=== PATIENT | male | born 1945 | race Caucasian/White ===

== ENCOUNTER 2017-07-06 08:54 | Day surgery (SDC) | payer OTHER ==
[2017-07-04 15:49] LABS: Basophils # (auto) 0 uL; Basophils % (auto) 0.5 % (0.0-2.0); Eosinophils # (auto) 0 uL; Eosinophils % (auto) 0.6 % (0.0-7.0); Hematocrit 36.3 % (41.0-53.0); Hemoglobin 11.8 g/dL (13.5-17.5); Lymphocytes # (auto) 0.7 uL; Lymphocytes % (auto) 11.8 % (10.0-50.0); Mean Corpuscular Hemoglobin 32.8 pg (28.0-32.0); Mean Corpuscular Hgb Conc. 32.6 g/dL (32.0-36.0); Mean Corpuscular Volume 100.4 fL (80.0-100.0); Monocytes % (auto) 16.6 % (0.0-12.0); Neutrophils # (auto) 4.1 uL; Neutrophils % (auto) 70.5 % (37.0-80.0); Nucleated Red Blood Cells % 0.1 %; Platelet Count (auto) 205 10^3/uL (140-450); Red Blood Cells 3.61 10^6/uL (4.5-5.90); Red Cell Distribution Width 13.9 % (11.8-14.3); White Blood Cell 5.8 10^3/uL (4.4-10.8)
[2017-07-04 16:07] LABS: INR 1.41 (0.9-1.15); Partial Thromboplastin Time 31.5 sec (22.64-33.71); Prothrombin Time 15.4 sec (9.37-12.3)
[2017-07-04 16:09] LABS: Calcium 7.9 mg/dL (8.5-10.1)
[~2017-07-06] VITALS: Ht 175.3 cm; Wt 68.0 kg
[~2017-07-06 08:54] MED LIST: ADAL40KI SC; CALC950T3 PO; CHOL500014 PO; CYAN1KIT IJ; OMEP20TA PO; PREN-96 PO; TAMS0.4C36 PO
[2017-07-06] MEDS ORDERED: ceFAZolin 1GM/100ML 50 ML IV ONE (09:32)
[2017-07-06] MEDS ORDERED: MIDAZOLAM HCL 1MG/1ML-2 ML VIAL ONE (11:43)
[2017-07-06] MEDS ORDERED: ETOMIDATE (2MG/ML) 20ML VIAL IV ONE (11:44)
[2017-07-06] MEDS ORDERED: LIDOCAINE HCL 2 %PF INJ 10ML AMP IJ ONE (11:44)
[2017-07-06] MEDS ORDERED: GLYCOPYRROLATE 0.2 MG/ML 1ML VIAL ONE ×2 (11:56→15:47)
[2017-07-06] MEDS ORDERED: NEOSTIGMINE 1 MG/ML INJ (10mg/10ML VIAL) ONE ×2 (11:56→15:47)
[2017-07-06] MEDS ORDERED: ROCURONIUM 10MG/ML 10ML VIAL IV ONE (12:03)
[2017-07-06] MEDS ORDERED: LIDOCAINE 1% (LOCAL ANESTH.) PF 5ml SDV ONE (13:09)
[2017-07-06] MEDS ORDERED: NALOXONE HCL 0.4 MG/ML VIAL IV PRN (13:15)
[2017-07-06] MEDS ORDERED: MORPHINE SULFATE 8mg/ml INJ SDV IV PRN (13:15)
[2017-07-06] MEDS ORDERED: hydrALAZINE HCL 20 MG/ML VL IV PRN (13:15)
[2017-07-06] MEDS ORDERED: ONDANSETRON HCL 4 MG/2 ML VIAL IV ONE (13:15)
[2017-07-06] MEDS ORDERED: fentaNYL CITRATE 100 MCG/2 ML VL ONE (14:33)
[2017-07-06] MEDS ORDERED: ePHEDrine SULFATE 50 MG/ML AMP ONE (14:54)
[2017-07-06 17:35] VITALS: BP 119/58
== END 2017-07-06 17:43 | disposition home or self-care (01) ==
LOC: SUR 08:54
PROVIDERS: ATTEND Urology
DX: C61 Malignant neoplasm of prostate (principal); K50.90 Crohn's disease, unspecified, without complications; M19.90 Unspecified osteoarthritis, unspecified site; D64.9 Anemia, unspecified; N18.9 Chronic kidney disease, unspecified; K21.9 Gastro-esophageal reflux disease without esophagitis; R97.20 Elevated prostate specific antigen [PSA]; Z90.49 Acquired absence of other specified parts of digestive tract; Z87.891 Personal history of nicotine dependence
CPT/HCPCS: 36415; 55873; 80048; 85025; 85610; 85730; C2618; J0690; J2250; J3010

== ENCOUNTER 2021-12-04 13:59 | Inpatient (IN) | payer MEDICARE, OTHER ==
[~2021-12-04] VITALS: Ht 177.8 cm; Wt 69.5 kg
[2021-12-04] MEDS ORDERED: SODIUM CHLORIDE 0.9% 1,000 ML IV ONE (16:00)
[2021-12-04] MEDS ORDERED: cefTRIAXone 1GM/50ML D5W 50 ML IV ONE (18:15)
[2021-12-04] MEDS ORDERED: AZITHROMYCIN 500MG/ 250ML 250 ML IV ONE (18:15)
[2021-12-04 18:53] LABS: Basophils # (auto) 0 10 ^3/uL (0-0.2); Basophils % (auto) 0.5 % (0.0-2.0); Eosinophils # (auto) 0 10 ^3/uL (0-0.8); Eosinophils % (auto) 0.3 % (0.0-7.0); Hematocrit 36.4 % (41.0-53.0); Hemoglobin 11.8 g/dL (13.5-17.5); Lymphocytes # (auto) 0.2 10 ^3/uL (0.4-5.4); Lymphocytes % (auto) 6.9 % (10.0-50.0); Mean Corpuscular Hemoglobin 29.1 pg (28.0-32.0); Mean Corpuscular Hgb Conc. 32.5 g/dL (32.0-36.0); Mean Corpuscular Volume 89.6 fL (80.0-100.0); Monocytes # (auto) 0.4 10 ^3/uL (0-1.3); Monocytes % (auto) 12.2 % (0.0-12.0); Neutrophils # (auto) 2.6 10 ^3/uL (1.6-8.6); Neutrophils % (auto) 80.1 % (37.0-80.0); Red Blood Cells 4.06 10^6/uL (4.5-5.90); Red Cell Distribution Width 14.5 % (11.8-14.3); White Blood Cell 3.3 10^3/uL (4.4-10.8)
[2021-12-04 19:15] LABS: Albumin 1.7 g/dL (3.4-5.0); Calcium 7.6 mg/dL (8.5-10.1); Magnesium 2.3 mg/dL (1.6-2.6); Potassium 4.5 mmol/L (3.5-5.1)
[2021-12-04 19:17] LABS: BUN/Creatinine Ratio 15.6; Bilirubin, Total 0.4 mg/dL (0.2-1.0)
[2021-12-04] MEDS ORDERED: SODIUM CHLORIDE 0.9% 1,000 ML IV SCH (19:30)
[2021-12-04] MEDS ORDERED: MORPHINE SULFATE INJ 2 MG/ml SYRG IV PRN (19:30)
[2021-12-04 20:48] VITALS: BP 106/62
[2021-12-04] MEDS: DexAMETHasone SOD PHOS 10MG/1ML VIAL INJ IV SCH (21:39)
[2021-12-04] MEDS: BUDESONIDE (INHALATION) 180 MCG IH IN SCH (21:46)
[2021-12-05 06:07] LABS: Basophils # (auto) 0 10 ^3/uL (0-0.2); Basophils % (auto) 0.3 % (0.0-2.0); Eosinophils # (auto) 0 10 ^3/uL (0-0.8); Eosinophils % (auto) 0.1 % (0.0-7.0); Hematocrit 34.2 % (41.0-53.0); Hemoglobin 11.4 g/dL (13.5-17.5); Lymphocytes # (auto) 0.3 10 ^3/uL (0.4-5.4); Lymphocytes % (auto) 8.4 % (10.0-50.0); Mean Corpuscular Hemoglobin 29.8 pg (28.0-32.0); Mean Corpuscular Hgb Conc. 33.5 g/dL (32.0-36.0); Mean Corpuscular Volume 89.2 fL (80.0-100.0); Monocytes # (auto) 0.2 10 ^3/uL (0-1.3); Monocytes % (auto) 5.5 % (0.0-12.0); Neutrophils # (auto) 2.9 10 ^3/uL (1.6-8.6); Neutrophils % (auto) 85.7 % (37.0-80.0); Nucleated Red Blood Cells % 0.2 %; Potassium 5.1 mmol/L (3.5-5.1); Red Blood Cells 3.83 10^6/uL (4.5-5.90); Red Cell Distribution Width 14.8 % (11.8-14.3); White Blood Cell 3.3 10^3/uL (4.4-10.8)
[2021-12-05 06:16] LABS: Albumin 1.4 g/dL (3.4-5.0); BUN/Creatinine Ratio 17.8; Bilirubin, Total 0.4 mg/dL (0.2-1.0); Calcium 6.9 mg/dL (8.5-10.1); Total Protein 5.4 g/dL (6.4-8.2)
[2021-12-05] MEDS: BUDESONIDE (INHALATION) 180 MCG IH IN SCH ×2 (09:13→18:51)
[2021-12-05] MEDS ORDERED: ZINC SULFATE 220mg CAP or TAB PO SCH (10:00)
[2021-12-05] MEDS: ZINC SULFATE 220mg CAP or TAB PO SCH (10:00)
[2021-12-05] MEDS: ENOXAPARIN SOD 40 MG/0.4 ML SYRINGE SC SCH (10:00)
[2021-12-05] MEDS: CHOLECALCIFEROL (VITD3) 2,000 UNIT CAP/TAB PO SCH (10:00)
[2021-12-05] MEDS: ASCORBIC ACID 1,000 MG TAB PO SCH (10:00)
[2021-12-05 10:01] VITALS: BP 95/52
[2021-12-05] MEDS: SODIUM CHLORIDE 0.9% 1,000 ML IV SCH ×2 (11:00→20:15)
[2021-12-05 11:09] VITALS: BP_SYST 142; BP_DIAS 80; BP_DIAS 86
[2021-12-05] MEDS: cefTRIAXone 1GM/50ML D5W 50 ML IV SCH (15:00)
[2021-12-05] MEDS: AZITHROMYCIN 500MG/ 250ML 250 ML IV SCH (15:08)
[2021-12-05 16:54] VITALS: BP 94/58
[2021-12-05 22:00] VITALS: BP 90/55
[2021-12-05] MEDS: DexAMETHasone SOD PHOS 10MG/1ML VIAL INJ IV SCH (22:44)
[2021-12-06] MEDS: SODIUM CHLORIDE 0.9% 1,000 ML IV SCH ×4 (04:56→20:20)
[2021-12-06 05:00] VITALS: BP 108/65
[2021-12-06 09:00] VITALS: BP 99/62
[2021-12-06] MEDS: BUDESONIDE (INHALATION) 180 MCG IH IN SCH ×2 (10:00→22:27)
[2021-12-06] MEDS: cefTRIAXone 1GM/50ML D5W 50 ML IV SCH (10:45)
[2021-12-06] MEDS: ZINC SULFATE 220mg CAP or TAB PO SCH (10:45)
[2021-12-06] MEDS: ENOXAPARIN SOD 40 MG/0.4 ML SYRINGE SC SCH (10:46)
[2021-12-06] MEDS: CHOLECALCIFEROL (VITD3) 2,000 UNIT CAP/TAB PO SCH (10:46)
[2021-12-06] MEDS: ASCORBIC ACID 1,000 MG TAB PO SCH (10:46)
[2021-12-06] MEDS: AZITHROMYCIN 500MG/ 250ML 250 ML IV SCH (10:47)
[2021-12-06] MEDS ORDERED: TPN PER PHARMACY 0 ML IV SCH (12:15)
[2021-12-06 13:00] VITALS: BP 115/61
[2021-12-06 14:30] LABS: Albumin 1.5 g/dL (3.4-5.0); Calcium 6.9 mg/dL (8.5-10.1); Potassium 4.3 mmol/L (3.5-5.1)
[2021-12-06 14:35] LABS: Bilirubin, Total 0.2 mg/dL (0.2-1.0); Phosphorus 2.2 mg/dL (2.5-4.90); Total Protein 4.7 g/dL (6.4-8.2)
[2021-12-06] MEDS ORDERED: DEXTROSE (50%) 50ML SYRG IV SCH (16:00)
[2021-12-06] MEDS: ACCU-CHEK COMFORT CURVE STRIP VI SCH (16:39)
[2021-12-06 16:50] VITALS: BP 106/56
[2021-12-06] MEDS: InsuLIN REG 1unit/0.01ml Soln (100units/ml) SC SCH (17:11)
[2021-12-06] MEDS: CLINIMIX PER PHARMACY IV NR (20:26)
[2021-12-06] MEDS: DexAMETHasone SOD PHOS 10MG/1ML VIAL INJ IV SCH (21:20)
[2021-12-06 22:00] VITALS: BP 126/57
[2021-12-07] MEDS: ACCU-CHEK COMFORT CURVE STRIP VI SCH ×5 (01:52→23:01)
[2021-12-07] MEDS: SODIUM CHLORIDE 0.9% 1,000 ML IV SCH ×5 (03:00→23:01)
[2021-12-07 05:00] VITALS: BP 135/76
[2021-12-07] MEDS: InsuLIN REG 1unit/0.01ml Soln (100units/ml) SC SCH ×5 (05:52→23:03)
[2021-12-07] MEDS: BUDESONIDE (INHALATION) 180 MCG IH IN SCH ×2 (08:42→19:53)
[2021-12-07 09:00] VITALS: BP 124/65
[2021-12-07] MEDS: ZINC SULFATE 220mg CAP or TAB PO SCH (09:48)
[2021-12-07] MEDS: cefTRIAXone 1GM/50ML D5W 50 ML IV SCH (09:48)
[2021-12-07] MEDS: CHOLECALCIFEROL (VITD3) 2,000 UNIT CAP/TAB PO SCH (09:48)
[2021-12-07] MEDS: ASCORBIC ACID 1,000 MG TAB PO SCH (09:48)
[2021-12-07] MEDS: ENOXAPARIN SOD 40 MG/0.4 ML SYRINGE SC SCH ×2 (09:49→10:00)
[2021-12-07 13:00] VITALS: BP 119/68
[2021-12-07] MEDS: AZITHROMYCIN 500MG/ 250ML 250 ML IV SCH (14:42)
[2021-12-07 17:00] VITALS: BP 123/61
[2021-12-07] MEDS: CLINIMIX PER PHARMACY IV NR (19:49)
[2021-12-07] MEDS: CLINIMIX PER PHARMACY IV SCH ×2 (20:00→23:03)
[2021-12-07 22:00] VITALS: BP 109/74
[2021-12-07] MEDS: DexAMETHasone SOD PHOS 10MG/1ML VIAL INJ IV SCH (23:03)
[2021-12-08] VITALS (7 sets, daily range): BP systolic 109–122; BP diastolic 52–78
[2021-12-08] MEDS: SODIUM CHLORIDE 0.9% 1,000 ML IV SCH (05:40)
[2021-12-08] MEDS: ACCU-CHEK COMFORT CURVE STRIP VI SCH ×3 (06:00→18:32)
[2021-12-08] MEDS: InsuLIN REG 1unit/0.01ml Soln (100units/ml) SC SCH ×3 (06:00→18:00)
[2021-12-08] MEDS: BUDESONIDE (INHALATION) 180 MCG IH IN SCH ×2 (09:42→22:19)
[2021-12-08] MEDS: AZITHROMYCIN 500MG/ 250ML 250 ML IV SCH (10:00)
[2021-12-08] MEDS: ENOXAPARIN SOD 40 MG/0.4 ML SYRINGE SC SCH (10:00)
[2021-12-08] MEDS: cefTRIAXone 1GM/50ML D5W 50 ML IV SCH (10:00)
[2021-12-08] MEDS: CHOLECALCIFEROL (VITD3) 2,000 UNIT CAP/TAB PO SCH (10:17)
[2021-12-08] MEDS: ASCORBIC ACID 1,000 MG TAB PO SCH (10:17)
[2021-12-08] MEDS: ZINC SULFATE 220mg CAP or TAB PO SCH (10:17)
[2021-12-08] MEDS: D5W/SOD CHLO 0.9% 1,000 ML IV SCH ×2 (12:45→19:25)
[2021-12-08] MEDS ORDERED: PANTOPRAZOLE 40 MG/10 ML VIAL INJ IV ONE (17:30)
[2021-12-08] MEDS: CLINIMIX PER PHARMACY IV SCH (19:49)
[2021-12-08] MEDS: DexAMETHasone SOD PHOS 10MG/1ML VIAL INJ IV SCH ×2 (21:48→22:00)
[2021-12-09] MEDS: ACCU-CHEK COMFORT CURVE STRIP VI SCH ×4 (00:29→18:38)
[2021-12-09] MEDS: D5W/SOD CHLO 0.9% 1,000 ML IV SCH ×4 (02:05→22:05)
[2021-12-09 05:00] VITALS: BP 116/53
[2021-12-09] MEDS: InsuLIN REG 1unit/0.01ml Soln (100units/ml) SC SCH ×4 (06:00→18:00)
[2021-12-09] MEDS: BUDESONIDE (INHALATION) 180 MCG IH IN SCH ×2 (07:23→19:42)
[2021-12-09 09:00] VITALS: BP 112/61
[2021-12-09] MEDS: cefTRIAXone 1GM/50ML D5W 50 ML IV SCH (10:00)
[2021-12-09] MEDS: AZITHROMYCIN 500MG/ 250ML 250 ML IV SCH (10:00)
[2021-12-09] MEDS: ENOXAPARIN SOD 40 MG/0.4 ML SYRINGE SC SCH (10:00)
[2021-12-09] MEDS ORDERED: PANTOPRAZOLE 40 MG TAB PO ONE (10:45)
[2021-12-09] MEDS ORDERED: HUMIRA SC SCH ×2 (10:45→11:30)
[2021-12-09] MEDS: CHOLECALCIFEROL (VITD3) 2,000 UNIT CAP/TAB PO SCH (11:42)
[2021-12-09] MEDS: ZINC SULFATE 220mg CAP or TAB PO SCH (11:43)
[2021-12-09] MEDS: ASCORBIC ACID 1,000 MG TAB PO SCH (11:43)
[2021-12-09 13:00] VITALS: BP 112/67
[2021-12-09 17:09] VITALS: BP 126/66
[2021-12-09] MEDS: CLINIMIX PER PHARMACY IV SCH (19:38)
[2021-12-09 22:00] VITALS: BP 138/67
[2021-12-09] MEDS: DexAMETHasone SOD PHOS 10MG/1ML VIAL INJ IV SCH (22:00)
[2021-12-10] MEDS: ACCU-CHEK COMFORT CURVE STRIP VI SCH ×3 (00:21→11:48)
[2021-12-10] MEDS: D5W/SOD CHLO 0.9% 1,000 ML IV SCH ×3 (04:45→18:05)
[2021-12-10 05:00] VITALS: BP 119/65
[2021-12-10] MEDS: InsuLIN REG 1unit/0.01ml Soln (100units/ml) SC SCH ×3 (05:48→11:48)
[2021-12-10] MEDS: BUDESONIDE (INHALATION) 180 MCG IH IN SCH ×2 (07:05→18:15)
[2021-12-10 08:34] VITALS: BP 123/65
[2021-12-10] MEDS: ASCORBIC ACID 1,000 MG TAB PO SCH (09:41)
[2021-12-10] MEDS: CHOLECALCIFEROL (VITD3) 2,000 UNIT CAP/TAB PO SCH (09:41)
[2021-12-10] MEDS: ZINC SULFATE 220mg CAP or TAB PO SCH (09:41)
[2021-12-10] MEDS: PANTOPRAZOLE 40 MG TAB PO SCH (09:42)
[2021-12-10] MEDS: ENOXAPARIN SOD 40 MG/0.4 ML SYRINGE SC SCH (09:46)
[2021-12-10 13:00] VITALS: BP 123/64
[2021-12-10] MEDS: AZITHROMYCIN 250 MG TAB PO SCH (13:04)
[2021-12-10 16:40] VITALS: BP 125/65
[2021-12-10 20:00] VITALS: BP 125/65
[2021-12-10] MEDS: DexAMETHasone SOD PHOS 10MG/1ML VIAL INJ IV SCH (22:00)
[2021-12-10] MEDS: ACETAMINOPHEN 325 MG TAB PO PRN (22:11)
[2021-12-10 23:23] VITALS: BP 151/75
[2021-12-11] MEDS: D5W/SOD CHLO 0.9% 1,000 ML IV SCH ×4 (00:44→20:11)
[2021-12-11 05:26] VITALS: BP 141/76
[2021-12-11 08:34] VITALS: BP 131/62
[2021-12-11] MEDS: BUDESONIDE (INHALATION) 180 MCG IH IN SCH ×2 (08:57→18:47)
[2021-12-11] MEDS: ENOXAPARIN SOD 40 MG/0.4 ML SYRINGE SC SCH (09:41)
[2021-12-11] MEDS: CHOLECALCIFEROL (VITD3) 2,000 UNIT CAP/TAB PO SCH (09:41)
[2021-12-11] MEDS: ASCORBIC ACID 1,000 MG TAB PO SCH (09:41)
[2021-12-11] MEDS: AZITHROMYCIN 250 MG TAB PO SCH (09:41)
[2021-12-11] MEDS: PANTOPRAZOLE 40 MG TAB PO SCH (09:41)
[2021-12-11] MEDS: ZINC SULFATE 220mg CAP or TAB PO SCH (09:41)
[2021-12-11 13:00] VITALS: BP 134/70
[2021-12-11 17:33] VITALS: BP 143/76
[2021-12-11 21:45] VITALS: BP 132/77
[2021-12-11] MEDS: DexAMETHasone SOD PHOS 10MG/1ML VIAL INJ IV SCH (21:45)
[2021-12-11] MEDS: HYDROcodone-ACET 5/325MG TAB PO PRN (23:00)
[2021-12-12] MEDS: D5W/SOD CHLO 0.9% 1,000 ML IV SCH ×3 (03:25→16:45)
[2021-12-12 05:11] VITALS: BP 140/77
[2021-12-12] MEDS: BUDESONIDE (INHALATION) 180 MCG IH IN SCH ×2 (06:53→21:53)
[2021-12-12 08:53] VITALS: BP 107/59
[2021-12-12] MEDS: ENOXAPARIN SOD 40 MG/0.4 ML SYRINGE SC SCH (10:00)
[2021-12-12] MEDS: ASCORBIC ACID 1,000 MG TAB PO SCH (10:00)
[2021-12-12] MEDS: PANTOPRAZOLE 40 MG TAB PO SCH (10:00)
[2021-12-12] MEDS: CHOLECALCIFEROL (VITD3) 2,000 UNIT CAP/TAB PO SCH (10:00)
[2021-12-12] MEDS: ZINC SULFATE 220mg CAP or TAB PO SCH (10:00)
[2021-12-12] MEDS: AZITHROMYCIN 250 MG TAB PO SCH (10:00)
[2021-12-12 13:00] VITALS: BP 107/59
[2021-12-12 16:57] VITALS: BP 130/83
[2021-12-12] MEDS: DexAMETHasone SOD PHOS 10MG/1ML VIAL INJ IV SCH (22:00)
[2021-12-12 22:01] VITALS: BP 135/72
[2021-12-13] MEDS: D5W/SOD CHLO 0.9% 1,000 ML IV SCH ×4 (00:20→19:25)
[2021-12-13 05:03] VITALS: BP 139/75
[2021-12-13] MEDS: BUDESONIDE (INHALATION) 180 MCG IH IN SCH ×2 (07:15→22:38)
[2021-12-13 08:00] VITALS: BP 137/74
[2021-12-13] MEDS: AZITHROMYCIN 250 MG TAB PO SCH (10:00)
[2021-12-13] MEDS: PANTOPRAZOLE 40 MG TAB PO SCH (10:00)
[2021-12-13] MEDS: ZINC SULFATE 220mg CAP or TAB PO SCH (10:00)
[2021-12-13] MEDS: CHOLECALCIFEROL (VITD3) 2,000 UNIT CAP/TAB PO SCH (10:00)
[2021-12-13] MEDS: ASCORBIC ACID 1,000 MG TAB PO SCH (10:00)
[2021-12-13] MEDS: ENOXAPARIN SOD 40 MG/0.4 ML SYRINGE SC SCH (10:00)
[2021-12-13 12:00] VITALS: BP 129/68
[2021-12-13 16:00] VITALS: BP 145/71
[2021-12-13 20:37] VITALS: BP 145/71
[2021-12-13 22:00] VITALS: BP 141/80
[2021-12-13] MEDS: DexAMETHasone SOD PHOS 10MG/1ML VIAL INJ IV SCH (22:00)
[2021-12-14] MEDS: D5W/SOD CHLO 0.9% 1,000 ML IV SCH ×4 (02:05→22:05)
[2021-12-14 05:00] VITALS: BP 152/71
[2021-12-14 09:00] VITALS: BP 125/67
[2021-12-14] MEDS: BUDESONIDE (INHALATION) 180 MCG IH IN SCH (09:38)
[2021-12-14] MEDS: CHOLECALCIFEROL (VITD3) 2,000 UNIT CAP/TAB PO SCH (09:45)
[2021-12-14] MEDS: ASCORBIC ACID 1,000 MG TAB PO SCH (09:45)
[2021-12-14] MEDS: AZITHROMYCIN 250 MG TAB PO SCH (09:45)
[2021-12-14] MEDS: ZINC SULFATE 220mg CAP or TAB PO SCH (09:45)
[2021-12-14] MEDS: ENOXAPARIN SOD 40 MG/0.4 ML SYRINGE SC SCH ×2 (09:46→10:00)
[2021-12-14] MEDS: PANTOPRAZOLE 40 MG TAB PO SCH (09:46)
[2021-12-14] MEDS: HYDROcodone-ACET 5/325MG TAB PO PRN ×2 (10:31→18:49)
[2021-12-14 22:00] VITALS: BP 128/74
[2021-12-14] MEDS: DexAMETHasone SOD PHOS 10MG/1ML VIAL INJ IV SCH (22:00)
[2021-12-15] MEDS: D5W/SOD CHLO 0.9% 1,000 ML IV SCH ×4 (04:45→23:57)
[2021-12-15 05:00] VITALS: BP 144/79
[2021-12-15] MEDS: BUDESONIDE (INHALATION) 180 MCG IH IN SCH ×2 (06:54→18:36)
[2021-12-15 09:00] VITALS: BP 123/77
[2021-12-15] MEDS: ENOXAPARIN SOD 40 MG/0.4 ML SYRINGE SC SCH ×2 (10:00→10:10)
[2021-12-15] MEDS: CHOLECALCIFEROL (VITD3) 2,000 UNIT CAP/TAB PO SCH (10:09)
[2021-12-15] MEDS: ZINC SULFATE 220mg CAP or TAB PO SCH (10:09)
[2021-12-15] MEDS: PANTOPRAZOLE 40 MG TAB PO SCH (10:09)
[2021-12-15] MEDS: ASCORBIC ACID 1,000 MG TAB PO SCH (10:09)
[2021-12-15] MEDS: AZITHROMYCIN 250 MG TAB PO SCH (10:09)
[2021-12-15] MEDS: HYDROcodone-ACET 5/325MG TAB PO PRN ×3 (10:10→21:16)
[2021-12-15 12:28] VITALS: BP 132/68
[2021-12-15 17:00] VITALS: BP 129/70
[2021-12-15] MEDS: DexAMETHasone SOD PHOS 10MG/1ML VIAL INJ IV SCH (21:15)
[2021-12-15 22:00] VITALS: BP 125/75
[2021-12-16] VITALS (7 sets, daily range): BP systolic 131–146; BP diastolic 68–78
[2021-12-16] MEDS: ACETAMINOPHEN 325 MG TAB PO PRN (03:13)
[2021-12-16] MEDS: D5W/SOD CHLO 0.9% 1,000 ML IV SCH ×4 (07:25→20:56)
[2021-12-16] MEDS ORDERED: CHOL1TAB28 PO (09:00)
[2021-12-16] MEDS ORDERED: ASCO500T11 PO (09:00)
[2021-12-16] MEDS ORDERED: PANT40T PO (09:00)
[2021-12-16] MEDS ORDERED: ZINC220C10 PO (09:00)
[2021-12-16] MEDS ORDERED: MULT1TAB95 PO (09:00)
[2021-12-16] MEDS: AZITHROMYCIN 250 MG TAB PO SCH (10:00)
[2021-12-16] MEDS: PANTOPRAZOLE 40 MG TAB PO SCH (10:00)
[2021-12-16] MEDS: ZINC SULFATE 220mg CAP or TAB PO SCH (10:00)
[2021-12-16] MEDS: ENOXAPARIN SOD 40 MG/0.4 ML SYRINGE SC SCH (10:00)
[2021-12-16] MEDS: ASCORBIC ACID 1,000 MG TAB PO SCH (10:00)
[2021-12-16] MEDS: CHOLECALCIFEROL (VITD3) 2,000 UNIT CAP/TAB PO SCH (10:00)
[2021-12-16] MEDS: BUDESONIDE (INHALATION) 180 MCG IH IN SCH ×2 (10:37→20:49)
[2021-12-16] MEDS: DexAMETHasone SOD PHOS 10MG/1ML VIAL INJ IV SCH (21:59)
[2021-12-17] MEDS: D5W/SOD CHLO 0.9% 1,000 ML IV SCH ×2 (03:25→10:05)
[2021-12-17 05:03] VITALS: BP 141/77
[2021-12-17] MEDS: BUDESONIDE (INHALATION) 180 MCG IH IN SCH (06:59)
[2021-12-17] MEDS ORDERED: HYDR-4902 PO (08:45)
[2021-12-17 09:00] VITALS: BP 135/76
[2021-12-17] MEDS: ZINC SULFATE 220mg CAP or TAB PO SCH (11:23)
[2021-12-17] MEDS: AZITHROMYCIN 250 MG TAB PO SCH (11:24)
[2021-12-17] MEDS: ASCORBIC ACID 1,000 MG TAB PO SCH (11:24)
[2021-12-17] MEDS: CHOLECALCIFEROL (VITD3) 2,000 UNIT CAP/TAB PO SCH (11:24)
[2021-12-17] MEDS: PANTOPRAZOLE 40 MG TAB PO SCH (11:24)
[2021-12-17 11:38] VITALS: BP 135/76
[2021-12-17 13:00] VITALS: BP 126/54
[2021-12-17 17:00] VITALS: BP 151/77
== END 2021-12-17 19:00 | disposition home or self-care (01) | DRG 871 ==
LOC: EDBD 13:59 → ER 13:59 → OVERFLOW 19:30 → EAST 12-05 09:02
PROVIDERS: ADMIT Internal Medicine; ATTEND Family Medicine
DX: A41.9 Sepsis, unspecified organism (principal); E43 Unspecified severe protein-calorie malnutrition; J12.82 Pneumonia due to coronavirus disease 2019; J15.9 Unspecified bacterial pneumonia; J96.01 Acute respiratory failure with hypoxia; U07.1 COVID-19; G93.41 Metabolic encephalopathy; J98.11 Atelectasis; N17.9 Acute kidney failure, unspecified; D84.821 Immunodeficiency due to drugs; D63.1 Anemia in chronic kidney disease; L89.109 Pressure ulcer of unspecified part of back, unspecified stage; E86.0 Dehydration; N18.9 Chronic kidney disease, unspecified; R62.7 Adult failure to thrive; Z68.24 Body mass index [BMI] 24.0-24.9, adult; F29 Unspecified psychosis not due to a substance or known physiological condition; Z53.20 Procedure and treatment not carried out because of patient's decision for unspecified reasons; H91.90 Unspecified hearing loss, unspecified ear; E16.2 Hypoglycemia, unspecified
CPT/HCPCS: 36415; 70450; 71045; 80053; 82962; 83605; 83735; 84100; 84478; 85025; 87040; 92610; 94640; 96361; 96365; 96367; 97110; 97530; C9113; G0378; J0696; J1100; J1815; J7042